=== PATIENT | male | born 1990 | race Caucasian/White ===

== ENCOUNTER 2024-04-19 08:21 | Emergency (ER) | payer OTHER ==
[2024-04-19 08:41] VITALS: BP 134/82; PULSE 78; RESP 18; TEMP 98.4; BMI 25.7
[2024-04-19] MEDS ORDERED: IBUPROFEN 600 MG TABLET (FP) PO ONE (09:07)
[2024-04-19] MEDS ORDERED: CYCLOBENZAPRINE HCL 5 MG TABLET ONE (09:07)
[2024-04-19] MEDS ORDERED: ACETAMINOPHEN 500 MG TABLET (FP) ONE (09:07)
[2024-04-19] MEDS: IBUPROFEN 400 MG TABLET (FP) PO ONE (09:11)
[2024-04-19] MEDS: CYCLOBENZAPRINE HCL 10 MG TABLET (FP) PO ONE (09:11)
[2024-04-19] MEDS: ACETAMINOPHEN 325 MG TABLET (FP) PO ONE (09:12)
== END 2024-04-19 10:11 | disposition home or self-care (01) ==
LOC: FER 08:21
DX: M54.2 Cervicalgia (principal); M54.9 Dorsalgia, unspecified; V43.52XA Car driver injured in collision with other type car in traffic accident, initial encounter; Y92.410 Unspecified street and highway as the place of occurrence of the external cause
CPT/HCPCS: 99283-25